=== PATIENT | female | born 1995 | race Caucasian/White ===

== ENCOUNTER 2021-03-05 11:18 | Emergency (ER) | payer OTHER ==
[2021-03-05 12:08] LABS: BASOPHILS # (AUTO) 0.1 10^3/uL (0.0-0.1); BASOPHILS % (AUTO) 0.6 %; EOSINOPHILS # (AUTO) 0.1 10^3/uL (0.0-0.7); EOSINOPHILS % (AUTO) 0.6 %; HCT - HEMATOCRIT 43.7 % (37.0-47.0); HGB - HEMOGLOBIN 14.8 g/dL (12.0-16.0); LYMPHOCYTES # (AUTO) 0.7 10^3/uL (1.5-3.5); LYMPHOCYTES % (AUTO) 9.1 %; MEAN CORPUSCULAR HEMOGLOBIN 31.4 pg (27.0-31.0); MEAN CORPUSCULAR HGB CONC 33.9 g/dL (32.0-36.0); MEAN CORPUSCULAR VOLUME 92.6 fL (81.0-99.0); MEAN PLATELET VOLUME 10.7 fL (7.9-10.8); MONOCYTES # (AUTO) 0.9 10^3/uL (0.0-1.0); MONOCYTES % (AUTO) 11.4 %; NEUTROPHILS # (AUTO) 6.3 10^3/uL (1.5-6.6); NEUTROPHILS % (AUTO) 78.1 %; PLT - PLATELET COUNT 339 10^3/uL (130-450); RED BLOOD COUNT 4.72 10^6/uL (4.20-5.40); RED CELL DISTRIBUTION WIDTH 12.2 % (12.0-15.0); WHITE BLOOD COUNT 8.1 x10^3/uL (4.8-10.8)
[2021-03-05] MEDS ORDERED: HYDROmorphone 1 MG/ML CARPUJECT IVP STA ×2 (12:11→14:38)
[2021-03-05] MEDS ORDERED: SODIUM CHLORIDE 0.9% 1,000 ML IV STA ×2 (12:11→12:18)
[2021-03-05] MEDS ORDERED: ONDANSETRON 4 MG/2 ML VIAL IVP STA ×3 (12:11→17:33)
--- NOTE | 2021-03-05 12:16 | ED Physician Documentation ---
History of Present Illness - Stated complaint Stated Complaint: N/V POST OP - Chief complaint Chief Complaint: Abd Pain - Additonal information Additional information: 25-year-old female presents the emergency department for 3 days persistent nausea and vomiting. She unfortunately underwent a large bowel volvulus repair at [facility] last week. She was discharged on Wednesday the . At the time of discharge she was tolerating clear liquids but since discharge home has not kept anything down. 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 One previous had required left-sided colostomy that was subsequently reanastomosed. She denies any fevers. She has persistent left-sided belly pain since discharge. Denies melena or hematochezia. No hematemesis. Review of Systems Constitutional: reports: Reviewed and negative Nose: reports: Reviewed and negative Throat: reports: Reviewed and negative Cardiac: reports: Reviewed and negative Respiratory: reports: Reviewed and negative GI: reports: Abdominal Pain, Nausea, Vomiting : reports: Reviewed and negative Skin: reports: Reviewed and negative Musculoskeletal: reports: Reviewed and negative Neurologic: reports: Reviewed and negative PD PAST MEDICAL HISTORY - Present Medications Home Medications: Ambulatory Orders Medication Instructions Recorded Confirmed Omeprazole 40 mg PO DAILY 03/05/21 03/05/21 - Allergies Allergies/Adverse Reactions: Allergies Allergy/AdvReac Type Severity Reaction Status Date / Time egg AdvReac Emesis Verified 03/05/21 11:32 Milk Containing Products AdvReac Emesis Verified 03/05/21 11:32 polyethylene glycol 3350 AdvReac Emesis Verified 03/05/21 11:31 [From Miralax] PD ED PE EXPANDED - General General: Alert, In Pain - Cardiac Cardiac: Tachy, Cap refill < 2 sec, Other (1+ radial and pedal pulse). No: Murmur Present - Respiratory Respiratory: Clear to ausultation luz. No: Distress, Labored - Abdomen Abdomen: Decreased BS (right sided bowel sound; normal left), Distended, Generalized/diffuse (diffuse abdominal tenderness; L>R; no guarding or rebound), Surgical scars (lengthy midline vertical incision from diaphgram to symphisi pubis; intact cm. no drainage, surrounding erythema) - Neuro Neuro: Alert and Oriented X 3, CNII-XII intact - GCS Eye Opening: Spontaneous Motor: Obeys Commands Verbal: Oriented Total: 15 Results - Vitals Vitals: Vital Signs - 24 hr 03/05/21 03/05/21 03/05/21 11:28 12:30 13:11 Temperature 36.8 C Heart Rate 133 H 117 H 97 Respiratory 16 16 18 Rate Blood Pressure 100/74 96/76 120/87 H O2 Saturation 97 95 100 03/05/21 03/05/21 03/05/21 14:00 14:30 15:00 Temperature Heart Rate 117 H 107 H 102 H Respiratory 16 16 16 Rate Blood Pressure 119/83 H 121/77 112/74 O2 Saturation 96 98 94 03/05/21 16:37 Temperature Heart Rate 108 H Respiratory 16 Rate Blood Pressure 122/73 O2 Saturation 96 Oxygen O2 Source Room air - Labs Labs: Laboratory Tests 03/05/21 03/05/21 03/05/21 12:00 12:00 12:00 WBC 8.1 RBC 4.72 Hgb 14.8 Hct 43.7 MCV 92.6 MCH 31.4 H MCHC 33.9 RDW 12.2 Plt Count 339 MPV 10.7 Neut # (Auto) 6.3 Lymph # (Auto) 0.7 L [place] # (Auto) 0.9 Eos # (Auto) 0.1 Baso # (Auto) 0.1 Absolute Nucleated RBC 0.00 Nucleated RBC % 0.0 Sodium 135 Potassium 3.6 Chloride 78 L* Carbon Dioxide 28 Anion Gap 29.0 H BUN 30 H Creatinine 1.7 H Estimated GFR (MDRD) 36 L Glucose 119 H Lactic Acid Calcium 10.1 Total Bilirubin 1.4 H AST 21 ALT 18 Alkaline Phosphatase 47 Total Protein 8.8 H Albumin 4.8 Globulin 4.0 Albumin/Globulin Ratio 1.2 Lipase 69 H HCG, Quant < 0.60 03/05/21 12:13 WBC RBC Hgb Hct MCV MCH MCHC RDW Plt Count MPV Neut # (Auto) Lymph # (Auto) [place] # (Auto) Eos # (Auto) Baso # (Auto) Absolute Nucleated RBC Nucleated RBC % Sodium Potassium Chloride Carbon Dioxide Anion Gap BUN Creatinine Estimated GFR (MDRD) Glucose Lactic Acid 1.8 Calcium Total Bilirubin AST ALT Alkaline Phosphatase Total Protein Albumin Globulin Albumin/Globulin Ratio Lipase HCG, Quant - Rads (name of study) CT abd/pelvis Radiology: Final report received (Finding is suggestive of high-grade small bowel obstruction possible secondary to 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 No peritoneal free air ) PD MEDICAL DECISION MAKING - ED course Complexity details: reviewed results, re-evaluated patient, d/w patient, d/w family ED course: 25-year-old female presents emergency department for persistent nausea and vomiting. This is in the setting of recent surgery to correct volvulus within her large intestine. Screening labs do not show leukocytosis or lactate elevation. Her chloride is remarkably low likely secondary to persistent vomiting. CT of the abdomen does show a high-grade small bowel obstruction likely secondary to the recurrent volvulus involving the small bowel proximal loops. Given the recent surgery at [facility] we have contacted her insurance to transfer patient. NGT order placed. 1320: We have spoken with Dr. Thierry Aggarwal transfer physician with [facility]. 1400: Patient has been accepted to [facility] accepting surgeon Dr. Solo. NG tube has at this time put out more than 4 L of green nasogastric fluid. Heart rate and blood pressure have improved following 2 L of IV fluids. Patient and mom were made aware of plan to transfer via ALS. Appropriate COBRA completed. 1730: Patient has remained stable since nasogastric tube inserted. Improved heart rate and stable blood pressure. She is requesting additional dose of Zofran. Pending [facility] ambulance arrival at any moment. Departure - Departure Disposition: 02 Transfer Acute Care Hosp Clinical Impression: Small bowel obstruction
[2021-03-05 12:25] LABS: ALBUMIN 4.8 g/dL (3.2-5.5); ALBUMIN/GLOBULIN RATIO 1.2 (1.0-2.2); BILIRUBIN,TOTAL 1.4 mg/dL (0.2-1.0); CALCIUM 10.1 mg/dL (8.5-10.3); CREATININE 1.7 mg/dL (0.4-1.0); POTASSIUM 3.6 mmol/L (3.5-5.0); TOTAL PROTEIN 8.8 g/dL (6.7-8.2)
[2021-03-05] MEDS ORDERED: IOVERSOL 320 100 ML VIAL IVP ONE ×2 (12:31→13:04)
--- NOTE | 2021-03-05 13:20 | CT Report ---
PROCEDURE: Abdomen/Pelvis W INDICATIONS: recent volvus repair; persistent pain, n/v CONTRAST: IV CONTRAST: Optiray 320 ml: 80 PO CONTRAST: *NO PO CONTRAST TECHNIQUE: After the administration of IV contrast, 5 mm thick sections acquired from the diaphragms to the symp hysis. 5 mm thick coronal and sagittal reformats were acquired. For radiation dose reduction, the f ollowing was used: automated exposure control, adjustment of mA and/or kV according to patient size. COMPARISON: None. FINDINGS: Image quality: Excellent. ABDOMEN: Lung bases: Lung bases are clear. Heart size is normal. Solid organs: Liver and spleen are normal in size and enhancement. Gallbladder is within normal [place] its. Biliary system is non dilated. Pancreas enhances normally. No adrenal nodules. Kidneys demon strate normal size and enhancement, without hydronephrosis. Peritoneum and bowel: Marked fluid distention of gastric lumen is seen. Significant fluid distention of proximal small bowel loops are also noted with abrupt caliber change seen in left lower quadrant j ust proximal to the surgical staple line in left lower quadrant abdomen concerning for high-grade obs truction in this area best seen on axial image 56 and coronal image 21. More distal bowel loops are d ecompressed. No free air is noted. Small amount of free fluid is seen in lower pelvis. Nodes and vessels: No retroperitoneal or mesenteric adenopathy by size criteria. Aorta and inferior vena cava are normal in size. Miscellaneous: No ventral hernias. Midline incisional wound is noted with skin cm in place. PELVIS: Genitourinary: Bladder wall thickness is normal. Miscellaneous: No inguinal hernias or adenopathy. Bones: No suspicious bony lesions. No vertebral body compression fractures. IMPRESSION: 1. Finding is suggestive of high-grade small bowel obstruction possible secondary to recurrent volvul us involving proximal small bowel loops in left side of abdomen with Stone of transition just proxima l to recent surgery staple line in left lower quadrant abdomen as above. No peritoneal free air is se en. Small amount of free fluid in lower pelvis. 2. Postsurgical changes in anterior abdominal wall with skin cm in place. Reviewed by: Fernando Cain MD on 03/05/2021 1:18 PM PDT Approved by: Fernando Cain MD on 03/05/2021 1:18 PM PDT Station ID: [id number]
[2021-03-05] MEDS ORDERED: LIDOCAINE VISCOUS 2% 15 ML UDC MM STA (13:28)
[2021-03-05] MEDS ORDERED: LIDOCAINE 2% URO-JET 5 ML SYRINGE UR STA (13:35)
[2021-03-05 17:35] LABS: B. PARAPERTUSSIS- RESP PCR PAN NOT DETECTED; B. PERTUSSIS- RESP PCR PANEL NOT DETECTED; C. PNEUMONIAE- RESP PCR PANEL NOT DETECTED; CORONAVIRUS 229E-RESP PCR NOT DETECTED; CORONAVIRUS HKU1-RESP PCR NOT DETECTED; CORONAVIRUS NL63-RESP PCR NOT DETECTED; CORONAVIRUS OC43-RESP PCR NOT DETECTED; HUMAN METAPNEUMOVIRUS NOT DETECTED; INFLUENZA A- RESP PCR PANEL NOT DETECTED; INFLUENZA B - RESP PCR PANEL NOT DETECTED; PARAINFLUENZA VIRUS 1 NOT DETECTED; PARAINFLUENZA VIRUS 2 NOT DETECTED; PARAINFLUENZA VIRUS 3 NOT DETECTED; PARAINFLUENZA VIRUS 4 NOT DETECTED; RHINOVIRUS/ENTEROVIRUS NOT DETECTED; RSV- RESP PCR PANEL NOT DETECTED; SARS-CoV-2 -RESP PCR PANEL NOT DETECTED
[2021-03-05 17:36] LABS: M. PNEUMONIAE- RESP PCR PANEL NOT DETECTED
[2021-03-05 17:57] VITALS: BP 117/79
== END 2021-03-05 18:01 | disposition short-term general hospital (02) ==
LOC: ED 11:18
DX: K91.30 Postprocedural intestinal obstruction, unspecified as to partial versus complete (principal); Z20.822 Contact with and (suspected) exposure to COVID-19
CPT/HCPCS: 0202U; 36415; 74177; 80053; 83605; 83690; 84702; 85025; 96361; 96374; 96375; 96376; 99284; 99285; J1170; Q9967